=== PATIENT | female | born 2000 | race American Indian/Alaskan Native ===

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

== ENCOUNTER 2021-08-05 13:13 | Emergency (ER) | payer MEDICAID ==
[2021-08-05] MEDS ORDERED: Sodium Chloride 0.9% 1,000 ML IV ONE (14:30)
[2021-08-05] MEDS ORDERED: Ondansetron 4 MG/2 ML SDV IVPUSH ONE (14:30)
[2021-08-05 14:36] LABS: ANION GAP 16.8 mEq/L (7-13); CHLORIDE,CL 103 mmol/L (98-107); SODIUM,NA 138 mmol/L (136-145)
--- NOTE | 2021-08-05 15:10 | EDM.PDOC ---
ED HPI GENERAL MEDICAL PROBLEM - General Chief Complaint: PORT PURSER Problem Stated Complaint: AND HASN'T EATEN IN 2 DAYS- SENT BY CLINI Time Seen by Provider: 08/05/21 14:05 Source of Information: Reports: Patient, RN, RN Notes Reviewed History Limitations: Reports: No Limitations - History of Present Illness INITIAL COMMENTS - FREE TEXT/NARRATIVE: Jihan is a 20 y/o female L1 who presents to the ED via personal vehicle with complaints of nausea, vomiting, and decreased appetite. The patient notes she is approximately six weeks ; her LMP was "..in late May." She has been [facility] with [facility] regarding her recent and they suggested she present to the local clinic for evaluation; the clinic had no appointments so she presented to the ED. She denies recent illness, fever, shaking chills, cough, sore throat, chest pain, palpitations, abdominal pain, cramping, dysuria, hematuria, or vaginal discharge. She has taken no medications for her symptoms. She notes the only thing she is able to keep down is ".. pops." The patient states Dr. Henry is her physician, she has not yet met with her. She denies tobacco, alcohol, or recreational drug use. Abdominal Pain Score (Numeric/FACES): 4 - Related Data Allergies Allergy/AdvReac Type Severity Reaction Status Date / Time No Known Allergies Allergy Verified 08/05/21 13:36 Home Meds: Home Meds Ibuprofen 600 mg PO Q6H PRN 05/21/20 [History] Vit37/Iron/Folic Acid [[place]] 1 tab PO DAILY 08/05/21 [History] Past Medical History - Past Health History Medical/Surgical History: Denies Medical/Surgical History HEENT History: Reports: None Cardiovascular History: Reports: None Respiratory History: Reports: None Gastrointestinal History: Reports: None Genitourinary History: Reports: Pyelonephritis PORT PURSER History: Reports: Musculoskeletal History: Reports: None Neurological History: Reports: None Psychiatric History: Reports: Anxiety, Depression, Other (See Below) Other Psychiatric History: Hx of cutting Endocrine/Metabolic History: Reports: None Hematologic History: Reports: None Immunologic History: Reports: None Oncologic (Cancer) History: Reports: None Dermatologic History: Reports: None - Infectious Disease History Infectious Disease History: Reports: None - Past Surgical History Head Surgeries/Procedures: Reports: None Social & Family History - Family History Family Medical History: No Pertinent Family History Endocrine/Metabolic: Reports: Diabetes, type II - Tobacco Use Tobacco Use Status *Q: Never Tobacco User Second Hand Smoke Exposure: No - Caffeine Use Caffeine Use: Reports: Soda - Recreational Drug Use Recreational Drug Type: Reports: Marijuana/Hashish ED ROS GENERAL - Review of Systems Review Of Systems: Comprehensive ROS is negative, except as noted in HPI. ED EXAM - Physical Exam Exam: See Below Exam Limited By: No Limitations General Appearance: Alert, No Apparent Distress, Thin, Other (Withdrawn) Eye Exam: Bilateral Eye: EOMI, Normal Inspection, PERRL (3mm) Ears: Normal External Exam, Hearing Grossly Normal Nose: Normal Inspection, Normal Mucosa, No Blood Throat/Mouth: Normal Voice, No Airway Compromise. No: Normal Oropharynx (Dry mucous membranes) Head: Atraumatic, Normocephalic Neck: Normal Inspection, Supple, Non-Tender, Full Range of Motion Respiratory/Chest: No Respiratory Distress, Lungs Clear, Normal Breath Sounds, No Accessory Muscle Use, Chest Non-Tender Cardiovascular: Normal Peripheral Pulses, Regular Rate, Rhythm, No Edema, No Gallop, No JVD, No Murmur, No Rub GI/Abdominal Exam: Normal Bowel Sounds, Soft, Non-Tender, No Distention, No Abnormal Bruit, No Mass, Pelvis Stable (Female) Exam: Other (Deferred) Back Exam: Normal Inspection, Full Range of Motion Extremities: Normal Inspection, Normal Range of Motion, Non-Tender, No Pedal Edema, Normal Capillary Refill Neurological: Alert, Oriented, CN II-XII Intact, Normal Cognition, Normal Gait, No Motor/Sensory Deficits Psychiatric: Flat Affect, Tearful Skin Exam: Warm, Dry, Intact, Normal Color, No Rash. No: Cyanosis, Diaphoretic, Jaundice, Mottled, Pallor Course - Vital Signs Last Recorded V/S: Last Vital Signs Temp 97 F 08/05/21 13:30 Pulse 90 08/05/21 13:30 Resp 16 08/05/21 13:30 BP 128/76 08/05/21 13:30 Pulse Ox 96 08/05/21 13:30 - Orders/Labs/Meds Labs: Laboratory Tests 08/05/21 08/05/21 08/05/21 Range/Units 14:02 14:02 14:02 WBC 10.9 H (5.0-10.0) 10^3/uL RBC 4.95 (4.2-5.4) 10^6/uL Hgb 13.3 D (12.0-16.0) g/dL Hct 40.1 (37.0-47.0) % MCV 81.0 D (80-100) fL MCH 26.9 L (27.0-34.0) pg MCHC 33.2 (33.0-35.0) g/dL Plt Count 299 D (150-450) 10^3/uL Neut % (Auto) 84.5 H (42.2-75.2) % Lymph % (Auto) 12.1 L (20.5-50.1) % [place] % (Auto) 3.1 (2-8) % Eos % (Auto) 0.1 L (1.0-3.0) % Baso % (Auto) 0.2 (0.0-1.0) % Sodium 138 (136-145) mmol/L Potassium 3.8 (3.5-5.1) mmol/L Chloride 103 (98-107) mmol/L Carbon Dioxide 22 (21-32) mmol/L Anion Gap 16.8 H (7-13) mEq/L BUN 5 L (7-18) mg/dL Creatinine 0.56 (0.55-1.02) mg/dL Est Cr Clr Drug Dosing 133.66 mL/min Estimated GFR (MDRD) > 60 BUN/Creatinine Ratio 8.9 (No establ ref range) Glucose 89 (70-99) mg/dL Calcium 8.7 (8.5-10.1) mg/dL Total Bilirubin 0.5 (0.2-1.0) mg/dL AST 13 L (15-37) U/L ALT 18 (14-59) U/L Alkaline Phosphatase 66 (46-116) U/L Total Protein 7.4 (6.4-8.2) g/dL Albumin 3.8 (3.4-5.0) g/dL Globulin 3.6 Albumin/Globulin Ratio 1.1 HCG, Quant 58300 H (0-6) mIU/mL Urine Color (YELLOW) Urine Appearance (CLEAR) Urine pH (5.0-9.0) Ur Specific [place] (1.005-1.030) Urine Protein (NEGATIVE) Urine Glucose (UA) (NEGATIVE) Urine Ketones (NEGATIVE) Urine Occult Blood (NEGATIVE) Urine Nitrite (NEGATIVE) Urine Bilirubin (NEGATIVE) Urine Urobilinogen (0.2-1.0) mg/dL Ur Leukocyte Esterase (NEGATIVE) Urine RBC (0-5) /HPF Urine WBC (0-5/HPF) /HPF Ur Epithelial Cells (NOT SEEN) /HPF Amorphous Sediment (NOT SEEN) /HPF Urine Bacteria (0-FEW/HPF) /HPF Urine Mucus (NOT SEEN) /LPF Urine HCG, Qual Urine Opiates Screen (NEGATIVE) Ur Oxycodone Screen (NEGATIVE) Urine Methadone Screen (NEGATIVE) Ur Barbiturates Screen (NEGATIVE) U Tricyclic Antidepress (NEGATIVE) Ur Phencyclidine Scrn (NEGATIVE) Ur Amphetamine Screen (NEGATIVE) U Methamphetamines Scrn (NEGATIVE) Urine MDMA Screen (NEGATIVE) U Benzodiazepines Scrn (NEGATIVE) Urine Cocaine Screen (NEGATIVE) U Marijuana (THC) Screen (NEGATIVE) Ethyl Alcohol < 3 (0) mg/dL 08/05/21 08/05/21 08/05/21 Range/Units 14:46 14:46 14:46 WBC (5.0-10.0) 10^3/uL RBC (4.2-5.4) 10^6/uL Hgb (12.0-16.0) g/dL Hct (37.0-47.0) % MCV (80-100) fL MCH (27.0-34.0) pg MCHC (33.0-35.0) g/dL Plt Count (150-450) 10^3/uL Neut % (Auto) (42.2-75.2) % Lymph % (Auto) (20.5-50.1) % [place] % (Auto) (2-8) % Eos % (Auto) (1.0-3.0) % Baso % (Auto) (0.0-1.0) % Sodium (136-145) mmol/L Potassium (3.5-5.1) mmol/L Chloride (98-107) mmol/L Carbon Dioxide (21-32) mmol/L Anion Gap (7-13) mEq/L BUN (7-18) mg/dL Creatinine (0.55-1.02) mg/dL Est Cr Clr Drug Dosing mL/min Estimated GFR (MDRD) BUN/Creatinine Ratio (No establ ref range) Glucose (70-99) mg/dL Calcium (8.5-10.1) mg/dL Total Bilirubin (0.2-1.0) mg/dL AST (15-37) U/L ALT (14-59) U/L Alkaline Phosphatase (46-116) U/L Total Protein (6.4-8.2) g/dL Albumin (3.4-5.0) g/dL Globulin Albumin/Globulin Ratio HCG, Quant (0-6) mIU/mL Urine Color Yellow (YELLOW) Urine Appearance Clear (CLEAR) Urine pH 6.5 (5.0-9.0) Ur Specific [place] 1.020 (1.005-1.030) Urine Protein Negative (NEGATIVE) Urine Glucose (UA) Negative (NEGATIVE) Urine Ketones >=160 H (NEGATIVE) Urine Occult Blood Trace-intact H (NEGATIVE) Urine Nitrite Negative (NEGATIVE) Urine Bilirubin Negative (NEGATIVE) Urine Urobilinogen 0.2 (0.2-1.0) mg/dL Ur Leukocyte Esterase Negative (NEGATIVE) Urine RBC 0-5 (0-5) /HPF Urine WBC 5-10 H (0-5/HPF) /HPF Ur Epithelial Cells Moderate H (NOT SEEN) /HPF Amorphous Sediment Few (NOT SEEN) /HPF Urine Bacteria Few (0-FEW/HPF) /HPF Urine Mucus Many H (NOT SEEN) /LPF Urine HCG, Qual Positive Urine Opiates Screen Negative (NEGATIVE) Ur Oxycodone Screen Negative (NEGATIVE) Urine Methadone Screen Negative (NEGATIVE) Ur Barbiturates Screen Negative (NEGATIVE) U Tricyclic Antidepress Negative (NEGATIVE) Ur Phencyclidine Scrn Negative (NEGATIVE) Ur Amphetamine Screen Negative (NEGATIVE) U Methamphetamines Scrn Negative (NEGATIVE) Urine MDMA Screen Negative (NEGATIVE) U Benzodiazepines Scrn Negative (NEGATIVE) Urine Cocaine Screen Negative (NEGATIVE) U Marijuana (THC) Screen Positive H (NEGATIVE) Ethyl Alcohol (0) mg/dL Meds: Medications Discontinued Medications Generic Name Dose Route Start Last Admin Trade Name Freq PRN Reason Stop Dose Admin Sodium Chloride 1,000 mls @ 999 mls/hr 08/05/21 14:30 08/05/21 14:44 Normal Saline IV 08/05/21 15:30 999 mls/hr .BOLUS ONE Administration Ondansetron HCl 4 mg 08/05/21 14:30 08/05/21 14:46 Ondansetron 4 Mg/2 Ml Sdv IVPUSH 08/05/21 14:31 4 mg ONETIME ONE Administration - Re-Assessments/Exams Free Text/Narrative Re-Assessment/Exam: 08/05/21 NS 1L bolus and Zofran 4mg IVP administered Findings of examination and lab work reviewed with patient. Will treat nausea with Zofran. Discussed supportive cares for n/v in with patient. P atient instructed to follow up with primary care provider regarding today's visit. Red flag signs and symptoms which would warrant reevaluation reviewed. Patient verbalized understanding and agreement with the plan of care. Departure - Departure Time of Disposition: 16:04 Disposition: Home, Self-Care 01 Condition: Good Clinical Impression: Nausea and vomiting in prior to 22 weeks gestation - Discharge Information *PRESCRIPTION DRUG MONITORING PROGRAM REVIEWED*: Not Applicable *COPY OF PRESCRIPTION DRUG MONITORING REPORT IN PATIENT ALAN: Not Applicable Instructions: Eating Plan for Women, Morning Sickness, Nausea and Vomiting, Adult Referrals: Darlyn Henry MD [Primary Care Provider] - Forms: ED Department Discharge Additional Instructions: Rx: Zofran ODT 1.) Follow up with your family practice provider regarding today's visit in 5-7 days. 2.) Eat small, snack-like meals to avoid nausea. 3.) Drink small, frequent sips of fluids to stay hydrated. 4.) Follow up with your primary care provider, or return to the emergency department, with any fever, shaking chills, painful urination, or worsening symptoms. Sepsis Event Note (ED) - Evaluation Sepsis Screening Result: No Definite Risk
[2021-08-05 15:17] LABS: AMPHETAMINES,URINE NEGATIVE (NEGATIVE); BARBITURATES,URINE NEGATIVE (NEGATIVE); BENZODIAZEPINE,URINE NEGATIVE (NEGATIVE); MDMA (ECSTASY), URINE NEGATIVE (NEGATIVE); METHADONE,URINE NEGATIVE (NEGATIVE); METHAMPHETAMINES,URINE NEGATIVE (NEGATIVE); OPIATES,URINE NEGATIVE (NEGATIVE); OXYCODONE,URINE NEGATIVE (NEGATIVE); PHENCYCLIDINE,URINE NEGATIVE (NEGATIVE); TCA,URINE NEGATIVE (NEGATIVE)
== END 2021-08-05 16:12 | disposition home or self-care (01) ==
LOC: DL.ED 13:13
DX: O21.9 Vomiting of pregnancy, unspecified (principal); Z3A.01 Less than 8 weeks gestation of pregnancy
CPT/HCPCS: 36415; 80053; 80305; 80307; 81001; 81025; 84702; 85025; 96374; 99283; 99284; J2405; J7030

== ENCOUNTER 2022-03-14 10:09 | Inpatient (IN) | payer MEDICAID ==
[~2022-03-14 10:09] MED LIST changes: -Acetaminophen 325 MG Tab PO PRN; -Butorphanol 2 MG/ML SDV IVPUSH PRN; -Carboprost Tromethamine 250 MCG/1 ML Amp IM PRN; -Lactated Ringers 1,000 ML IV ONE; +Lactated Ringers 1,000 ML IV SCH; -Lidocaine 1% 30 ML SDV INJECT PRN; -Methylergonovine 0.2 MG/1 ML Amp IM PRN; -Misoprostol 400 MCG (4 X 100 MCG TAB) RECTAL PRN; -Ondansetron 4 MG/2 ML SDV IVPUSH PRN; -fentaNYL 100 MCG/2 ML SDV IVPUSH PRN; -hydrOXYzine HCl 25 MG Tab PO ONE
[2022-03-14] MEDS ORDERED: Oxytocin/Normal Saline 60 UNIT/1,000 ML BAG ONE (10:41)
[2022-03-14] MEDS: Lactated Ringers 1,000 ML IV SCH ×3 (10:51→15:50)
[2022-03-14] MEDS ORDERED: Citric Acid/Sodium Citrate Solution 30 ML Cup PO ONE (11:30)
[2022-03-14] MEDS ORDERED: ceFAZolin 2 GM in Premix Bag 1 BAG IV ONE (11:45)
[2022-03-14] MEDS ORDERED: Carboprost Tromethamine 250 MCG/1 ML Amp IM PRN (12:00)
[2022-03-14] MEDS ORDERED: Misoprostol 400 MCG (4 X 100 MCG TAB) RECTAL ONE (12:00)
[2022-03-14] MEDS ORDERED: Oxytocin 10 Units/1 ML SDV IM PRN (12:00)
[2022-03-14] MEDS ORDERED: Methylergonovine 0.2 MG Tab PO PRN (12:00)
[2022-03-14] MEDS ORDERED: Naloxone 2 MG/2 ML Syringe IVPUSH PRN (13:31)
[2022-03-14] MEDS ORDERED: ePHEDrine 50 MG/ML SDV IVPUSH PRN (13:31)
[2022-03-14] MEDS ORDERED: Ondansetron 4 MG/2 ML SDV IVPUSH PRN (13:31)
[2022-03-14] MEDS ORDERED: diphenhydrAMINE 50 MG/ML SDV IVPUSH PRN (13:31)
[2022-03-14] MEDS ORDERED: Methylergonovine 0.2 MG/1 ML Amp IM PRN (13:31)
[2022-03-14] MEDS ORDERED: Acetaminophen 325 MG Tab PO PRN (13:31)
[2022-03-14 14:26] LABS: AMPHETAMINES,URINE NEGATIVE (NEGATIVE); BARBITURATES,URINE NEGATIVE (NEGATIVE); BENZODIAZEPINE,URINE NEGATIVE (NEGATIVE); MDMA (ECSTASY), URINE NEGATIVE (NEGATIVE); METHADONE,URINE NEGATIVE (NEGATIVE); METHAMPHETAMINES,URINE POSITIVE (NEGATIVE); OPIATES,URINE NEGATIVE (NEGATIVE); OXYCODONE,URINE NEGATIVE (NEGATIVE); PHENCYCLIDINE,URINE NEGATIVE (NEGATIVE); TCA,URINE NEGATIVE (NEGATIVE)
[2022-03-14] MEDS ORDERED: Promethazine 25 MG/ML SDV IM ONE (15:10)
[2022-03-14] MEDS: Simethicone 80 MG Tab.Chew PO SCH ×2 (15:59→22:04)
[2022-03-14] MEDS: Sodium Chloride 0.9% 10 ML Syringe FLUSH SCH (22:00)
[2022-03-14] MEDS: Docusate Sodium 100 MG Cap PO PRN (22:01)
[2022-03-14] MEDS: Ibuprofen 800 MG Tab PO PRN (22:01)
[2022-03-15] MEDS: Lactated Ringers 1,000 ML IV SCH (00:05)
[2022-03-15] MEDS: Acetaminophen/oxyCODONE 325-5 MG Tab PO PRN ×4 (06:40→21:33)
[2022-03-15] MEDS: Ferrous Sulfate 325 MG Tab PO SCH (08:41)
[2022-03-15] MEDS: Docusate Sodium 100 MG Cap PO PRN (08:41)
[2022-03-15] MEDS: Prenatal Multivitamin with Calcium/Folic Acid/Iron Tab PO SCH (08:41)
[2022-03-15] MEDS: Ibuprofen 800 MG Tab PO PRN ×2 (08:41→16:50)
[2022-03-15] MEDS: Simethicone 80 MG Tab.Chew PO SCH ×4 (08:41→21:34)
[2022-03-15] MEDS: Sodium Chloride 0.9% 10 ML Syringe FLUSH SCH ×2 (10:24→22:25)
[2022-03-16] MEDS: Acetaminophen/oxyCODONE 325-5 MG Tab PO PRN ×3 (07:14→21:56)
[2022-03-16] MEDS: Ibuprofen 800 MG Tab PO PRN ×2 (07:16→17:04)
[2022-03-16] MEDS: Simethicone 80 MG Tab.Chew PO SCH ×4 (08:46→21:55)
[2022-03-16] MEDS: Ferrous Sulfate 325 MG Tab PO SCH (08:46)
[2022-03-16] MEDS: Prenatal Multivitamin with Calcium/Folic Acid/Iron Tab PO SCH (08:46)
[2022-03-16] MEDS: Docusate Sodium 100 MG Cap PO PRN ×2 (17:05→21:55)
[2022-03-17] MEDS: Ibuprofen 800 MG Tab PO PRN (01:20)
[2022-03-17] MEDS: Acetaminophen/oxyCODONE 325-5 MG Tab PO PRN ×2 (03:58→07:59)
[2022-03-17] MEDS: Sodium Chloride 0.9% 10 ML Syringe FLUSH SCH (07:29)
[2022-03-17] MEDS: Docusate Sodium 100 MG Cap PO PRN (07:58)
[2022-03-17] MEDS: Ferrous Sulfate 325 MG Tab PO SCH (07:58)
[2022-03-17] MEDS: Simethicone 80 MG Tab.Chew PO SCH (07:59)
[2022-03-17] MEDS: Prenatal Multivitamin with Calcium/Folic Acid/Iron Tab PO SCH (07:59)
[2022-03-17] MEDS ORDERED: Ondansetron 4 MG/2 ML SDV IV ONE (10:29)
[2022-03-17] MEDS ORDERED: ePHEDrine 50 MG/ML SDV IV ONE (10:29)
[2022-03-17] MEDS ORDERED: Sodium Chloride 0.9% 10 ML Syringe IV ONE (10:29)
[2022-03-17] MEDS ORDERED: Morphine PF 10 MG/10 ML SDV ONE (10:29)
[2022-03-17] MEDS ORDERED: Dexamethasone 4 MG/ML SDV IV ONE (10:29)
[2022-03-17] MEDS ORDERED: Lactated Ringers 1,000 ML IV ONE (10:29)
[2022-03-17] MEDS ORDERED: Oxytocin/Normal Saline 30 UNIT/500 ML BAG IV ONE (10:29)
[2022-03-17] MEDS ORDERED: Tranexamic Acid 1,000 MG in Sodium Chloride 0.9% 100 ML IV ONE (10:29)
== END 2022-03-17 10:30 | disposition home or self-care (01) | DRG 787 ==
LOC: DL.OB 10:09
PROVIDERS: ADMIT Family Medicine; ATTEND Family Medicine
PROC: 10D00Z1 Extraction of Products of Conception, Low, Open Approach (ICD-10-PCS; principal; 2022-03-14)
DX: O34.211 Maternal care for low transverse scar from previous cesarean delivery (principal); O99.323 Drug use complicating pregnancy, third trimester; D64.9 Anemia, unspecified; O99.02 Anemia complicating childbirth; Z3A.39 39 weeks gestation of pregnancy; Z37.0 Single live birth; Z87.59 Personal history of other complications of pregnancy, childbirth and the puerperium; Z20.822 Contact with and (suspected) exposure to COVID-19; Z3A.38 38 weeks gestation of pregnancy; F12.90 Cannabis use, unspecified, uncomplicated
CPT/HCPCS: 01961; 36415; 59025; 80305-QW; 85018; 85025; 85027; 86592; 86850; 86900; 86901; A9270-GY; J0690; J1100; J2270; J2405; J2550; J2590; J3490; J7120; U0002

== ENCOUNTER 2022-11-13 10:41 | Inpatient (IN) | payer MEDICAID ==
[2022-11-13 11:20] LABS: AMPHETAMINES,URINE NEGATIVE (NEGATIVE); BARBITURATES,URINE NEGATIVE (NEGATIVE); BENZODIAZEPINE,URINE NEGATIVE (NEGATIVE); MDMA (ECSTASY), URINE NEGATIVE (NEGATIVE); METHADONE,URINE NEGATIVE (NEGATIVE); METHAMPHETAMINES,URINE NEGATIVE (NEGATIVE); OPIATES,URINE NEGATIVE (NEGATIVE); OXYCODONE,URINE NEGATIVE (NEGATIVE); PHENCYCLIDINE,URINE NEGATIVE (NEGATIVE); TCA,URINE NEGATIVE (NEGATIVE)
[2022-11-13] MEDS ORDERED: Sodium Chloride 0.9% 10 ML Syringe FLUSH PRN (11:37)
[2022-11-13] MEDS ORDERED: Sodium Chloride 0.9% 1,000 ML IV ONE ×2 (11:38→12:32)
[2022-11-13] MEDS ORDERED: fentaNYL 100 MCG/2 ML SDV IVPUSH ONE (11:42)
[2022-11-13] MEDS ORDERED: Metoclopramide 10 MG/2 ML SDV IVPUSH ONE ×2 (11:42→13:48)
[2022-11-13 12:34] LABS: ANION GAP 15.5 mEq/L (7-13)
[2022-11-13] MEDS ORDERED: cefTRIAXone 2 GM Vial IVPUSH ONE (13:18)
[2022-11-13] MEDS ORDERED: Acetaminophen 500 MG Tab PO ONE (13:47)
[2022-11-13] MEDS ORDERED: Morphine 2 MG/ML SYRINGE IVPUSH PRN (14:39)
[2022-11-13] MEDS ORDERED: Sodium Chloride 0.9% 1,000 ML IV SCH (14:45)
[2022-11-13] MEDS: Acetaminophen 325 MG Tab PO PRN ×2 (15:19→21:47)
[2022-11-13] MEDS: Ondansetron 4 MG Tab.DIS PO PRN (21:48)
[2022-11-14] MEDS: Acetaminophen 325 MG Tab PO PRN ×3 (04:57→18:02)
[2022-11-14] MEDS: Ondansetron 4 MG Tab.DIS PO PRN ×3 (04:57→21:56)
[2022-11-14] MEDS: cefTRIAXone 1 GM Vial IVPUSH SCH (08:44)
[2022-11-14] MEDS: Sodium Chloride 0.9% 1,000 ML IV SCH ×2 (12:52→20:14)
[2022-11-15] MEDS: Sodium Chloride 0.9% 1,000 ML IV SCH ×3 (04:10→20:20)
[2022-11-15] MEDS: Ondansetron 4 MG Tab.DIS PO PRN (04:18)
[2022-11-15] MEDS: Acetaminophen 325 MG Tab PO PRN ×3 (05:47→20:40)
[2022-11-15] MEDS: cefTRIAXone 1 GM Vial IVPUSH SCH (08:07)
[2022-11-15] MEDS: Ondansetron 4 MG Tab.DIS PO SCH ×2 (11:05→20:12)
[2022-11-16] MEDS: Ondansetron 4 MG Tab.DIS PO SCH ×2 (03:15→10:39)
[2022-11-16] MEDS: Sodium Chloride 0.9% 1,000 ML IV SCH (03:19)
[2022-11-16] MEDS: cefTRIAXone 1 GM Vial IVPUSH SCH (09:56)
[2022-11-16] MEDS: Acetaminophen 325 MG Tab PO PRN (10:40)
[2022-11-16] MEDS ORDERED: Ondansetron 4 MG Tab.DIS ONE (15:01)
[2022-11-16] MEDS ORDERED: Ondansetron 4 MG Tab.DIS PO ONE (15:14)
[2022-11-20 14:46] LABS: C.TRACHOMATIS BY TMA Negative (Negative); N.GONORRHOEAE BY TMA Negative (Negative)
== END 2022-11-16 15:15 | disposition home or self-care (01) | DRG 831 ==
LOC: DL.ED 10:41 → UNDOADMIN 13:22 → DL.MS 13:22 → DL.OB 13:22
PROVIDERS: ADMIT Family Medicine; ATTEND Family Medicine
DX: O23.01 Infections of kidney in pregnancy, first trimester (principal); U07.1 COVID-19; O98.511 Other viral diseases complicating pregnancy, first trimester; O99.321 Drug use complicating pregnancy, first trimester; Z3A.01 Less than 8 weeks gestation of pregnancy; Z86.16 Personal history of COVID-19; F12.90 Cannabis use, unspecified, uncomplicated
CPT/HCPCS: 36415; 76770; 76801; 80053; 80305; 81001; 81025; 83605; 85025; 86140; 87040 ×2; 87077; 87086; 87088; 87186 ×2; 87491; 87563; 87591; 87635; J2765; J3010; J7030 ×2; A9270-GY; J0696; J3490; U0002

== ENCOUNTER 2023-01-07 09:33 | Emergency (ER) | payer MEDICAID ==
[2023-01-07 10:55] LABS: ANION GAP 15.3 mEq/L (7-13)
== END 2023-01-07 13:12 | disposition home or self-care (01) ==
LOC: DL.ED 09:33
DX: O99.012 Anemia complicating pregnancy, second trimester (principal); M54.50 Low back pain, unspecified; E87.6 Hypokalemia; R94.6 Abnormal results of thyroid function studies; R31.21 Asymptomatic microscopic hematuria; Z3A.00 Weeks of gestation of pregnancy not specified; Z79.899 Other long term (current) drug therapy; Z86.16 Personal history of COVID-19
CPT/HCPCS: 36415; 76770; 80053; 81001; 83605; 84443; 85025; 86140; 99284

== ENCOUNTER 2025-03-10 09:37 | Inpatient (IN) | payer MEDICAID ==
[~2025-03-10 09:37] MED LIST changes: +Carboprost Tromethamine 250 MCG/1 ML Amp IM PRN; -Lactated Ringers 1,000 ML IV SCH; +Methylergonovine 0.2 MG Tab PO PRN; +Oxytocin 10 Units/1 ML SDV IM PRN; -Oxytocin/Normal Saline 30 UNIT/500 ML BAG IV SCH
[2025-03-10 10:15] LABS: BASOPHILS PERCENT AUTO 0.3 % (0.0-1.0); EOSINOPHILS PERCENT AUTO 0.5 % (1.0-3.0); HEMATOCRIT 30.2 % (37.0-47.0); LYMPHOCYTES PERCENT AUTO 22.6 % (20.5-50.1); MEAN CORPUSCULAR HEMOGLOBIN 20.6 pg (27.0-34.0); MEAN CORPUSCULAR HGB CONC 29.8 g/dL (33.0-35.0); MEAN CORPUSCULAR VOLUME 69.3 fL (80-100); MONOCYTES PERCENT AUTO 3.4 % (2-8); NEUTROPHILS PERCENT AUTO 73.2 % (42.2-75.2); PLATELET COUNT,PLT 319 10^3/uL (150-450); RED BLOOD CELL COUNT 4.36 10^6/uL (4.2-5.4); WHITE BLOOD CELL COUNT,WBC 7.6 10^3/uL (5.0-10.0)
[2025-03-10] MEDS: Lactated Ringers 1,000 ML IV SCH ×3 (10:30→19:30)
[2025-03-10] MEDS: Misoprostol 100 MCG Tab RECTAL ONE (13:32)
[2025-03-10] MEDS: Oxytocin/Lactated Ringers 30 UNIT/500 ML BAG IV SCH (15:06)
[2025-03-10] MEDS: Ondansetron 4 MG/2 ML SDV IVPUSH PRN (16:28)
[2025-03-10] MEDS ORDERED: Ondansetron 4 MG/2 ML SDV IVPUSH PRN (17:25)
[2025-03-10] MEDS ORDERED: diphenhydrAMINE 50 MG/ML SDV IV PRN (17:25)
[2025-03-10] MEDS ORDERED: Acetaminophen/oxyCODONE 325-5 MG Tab PO PRN (17:25)
[2025-03-10] MEDS ORDERED: Tranexamic Acid 1,000 MG in Sodium Chloride 0.9% 100 ML IV PRN (17:25)
[2025-03-10] MEDS ORDERED: Methylergonovine 0.2 MG/1 ML Amp IM PRN (17:25)
[2025-03-10] MEDS ORDERED: ePHEDrine 50 MG/ML SDV IVPUSH PRN (17:25)
[2025-03-10] MEDS ORDERED: Acetaminophen 325 MG Tab PO PRN (17:25)
[2025-03-10] MEDS ORDERED: Carboprost Tromethamine 250 MCG/1 ML Amp IM PRN (17:25)
[2025-03-10] MEDS ORDERED: Misoprostol 100 MCG Tab RECTAL PRN (17:25)
[2025-03-10] MEDS ORDERED: diphenhydrAMINE 50 MG/ML SDV IVPUSH PRN (17:25)
[2025-03-10] MEDS ORDERED: Naloxone 2 MG/2 ML Syringe IVPUSH PRN (17:25)
[2025-03-10] MEDS: Simethicone 80 MG Tab.Chew PO SCH (18:12)
[2025-03-10] MEDS: Sodium Chloride 0.9% 10 ML Syringe FLUSH SCH (19:19)
[2025-03-10] MEDS: Ketorolac 30 MG/ML SDV IVPUSH SCH (19:30)
[2025-03-10] MEDS: Nalbuphine HCl 10 MG/ 1ML Amp IVPUSH ONE (20:06)
[2025-03-10] MEDS: ceFAZolin 2 GM Vial IVPUSH ONE (20:42)
[2025-03-11] MEDS: Ibuprofen 800 MG Tab PO SCH (06:21)
[2025-03-11 06:26] LABS: BASOPHILS PERCENT AUTO 0.4 % (0.0-1.0); EOSINOPHILS PERCENT AUTO 0.9 % (1.0-3.0); HEMATOCRIT 27.4 % (37.0-47.0); HEMOGLOBIN 8.2 g/dL (12.0-16.0); LYMPHOCYTES PERCENT AUTO 22.9 % (20.5-50.1); MEAN CORPUSCULAR HGB CONC 29.9 g/dL (33.0-35.0); MEAN CORPUSCULAR VOLUME 70.3 fL (80-100); MONOCYTES PERCENT AUTO 5.5 % (2-8); NEUTROPHILS PERCENT AUTO 70.3 % (42.2-75.2); PLATELET COUNT,PLT 261 10^3/uL (150-450); WHITE BLOOD CELL COUNT,WBC 8.5 10^3/uL (5.0-10.0)
[2025-03-11] MEDS: Acetaminophen/oxyCODONE 325-5 MG Tab PO PRN (08:57)
[2025-03-11] MEDS: Prenatal Multivitamin with Calcium/Folic Acid/Iron Tab PO SCH (08:58)
[2025-03-11] MEDS: Docusate Sodium 100 MG Cap PO PRN (08:58)
[2025-03-11] MEDS: Ferrous Sulfate 325 MG Tab PO SCH (08:58)
== END 2025-03-12 09:59 | disposition home or self-care (01) | DRG 786 ==
LOC: DL.MS 09:37 → OBSVTOIN 12:48
PROVIDERS: ADMIT Family Medicine; ATTEND Student in an Organized Health Care Education/Training Program
PROC: 10D00Z1 Extraction of Products of Conception, Low, Open Approach (ICD-10-PCS; principal; 2025-03-10 12:00)
DX: O99.02 Anemia complicating childbirth (principal); O45.93 Premature separation of placenta, unspecified, third trimester; D50.9 Iron deficiency anemia, unspecified; O34.211 Maternal care for low transverse scar from previous cesarean delivery; Z3A.39 39 weeks gestation of pregnancy; Z37.0 Single live birth
CPT/HCPCS: 01961; 36415; 85025; 86850; 86900; 86901; A9270-GY; J1885; J2405; J2590; J7120